=== PATIENT | male | born 1970 | race Caucasian/White ===

== ENCOUNTER 2016-06-15 14:33 | Emergency (ER) | payer SELFPAY ==
[2016-06-15 15:06] VITALS: BP 120/86; PULSE 96; TEMP 98.4
--- NOTE | 2016-06-15 15:14 | DIRPT ---
CLINICAL DATA: Slip and fall today with left-sided chest pain, initial encounter EXAM: LEFT RIBS AND CHEST - 3+ VIEW COMPARISON: 03/06/2016 FINDINGS: Cardiac shadow is within normal limits. The lungs are well aerated bilaterally. No focal infiltrate, effusion or pneumothorax is noted. No acute rib fracture is noted. IMPRESSION: No acute abnormality seen. Electronically Signed By: Clay Bryan M.D. On: 06/15/2016 15:11
--- NOTE | 2016-06-15 15:25 | EDPRACDOC ---
- General Information Chief Complaint: Rib Pain Stated Complaint: FALL - LEFT RIB PAIN Time Seen by Provider: 06/15/16 15:19 Home Medications: Home Medications Omeprazole 20 mg PO DAILY 07/29/12 Insulin Aspart [Novolog Flexpen] 14 unit SQ TID 07/01/14 Insulin Detemir [Levemir] 16 unit SQ HS 12/13/14 Paroxetine HCl [Paxil] 20 mg PO DAILY 03/26/16 Ketorolac Tromethamine [Toradol] 10 mg PO Q6H PRN #20 tab 03/27/16 Penicillin V Potassium 500 mg PO QID #28 tablet 03/27/16 Cyclobenzaprine HCl [Flexeril] 10 mg PO TID PRN #20 tablet 06/15/16 Ibuprofen Tablet [Motrin] 800 mg PO TID PRN #30 tab 06/15/16 Allergies/Adverse Reactions: Allergies Allergy/AdvReac Type Severity Reaction Status Date / Time No Known Drug Allergies Allergy Unknown Verified 03/06/16 02:06 - History of Present Illness Onset: YESTERDAY HPI: PT COMPLAINS OF PAIN IN LEFT LATERAL RIB CAGE SINCE YESTERDAY, NO KNOWN INJURY, DENIES FALL OR OTHER TRAUMA, STATES PAIN IS SHARP, WORSE WITH BREATHING AND MOVING, NO COUGH OR CONGESTION, NO FEVER OR CHILLS, NO SOBR. HAS NOT TAKEN ANY MEDICATIONS FOR HIS PAIN. Chest Wall Injury Location: Reports: Lateral Context: Reports: Other (NO KNOWN INJURY) Tetanus Up To Date?: Yes Pain Quality: Reports: Sharp, Stabbing Pain Severity: Reports: Severe Pain Worsens With: Reports: Coughing, Breathing, Movement Shortness of Breath: None Associated Signs and Symptoms: Denies: Abrasion, Laceration, Hemoptysis, Abdominal Pain ED Past Medical History - History Reviewed Yes Nurses notes reviewed and agree except as marked - Patient Medical History Neurological History: Denies: Cerebrovascular Accident, Dementia Cardiac History: Reports: Congestive Heart Failure. Denies: Atrial Fibrillation , Hypertension, Heart Attack, Hypercholesterolemia Respiratory History: Denies: Asthma, COPD, Emphysema GI/ History: Reports: Gastroesophageal Reflux, Pancreatitis (most recent episode 2014) Musculoskeletal History: Reports: Arthritis (Back pain.) Psychological History: Reports: Anxiety, Bipolar Disorder, Substance Use Disorder (IV cocaine use. Injects cocaine and vinegar together.). Denies: Depression Systemic History: Reports: Diabetes (Type 2, onset 2005 approx. Insulin use.). Denies: Cancer Surgical History: Reports: Other (Drainage of abscesses) - Family Medical History Reports: Diabetes (Mother), Cancer (Great aunt), Stroke (MGM), Cardiac Disorders (MGM: [place]). Denies: Hypertension - Social Medical History Smoking Status: Heavy tobacco smoker (5 or more cigarettes/day or daily pipe/ cigar) Social History: Reports: Cocaine Use, Substance Use Disorder (IV cocaine use. Injects cocaine and vinegar together.) EDM Review of Systems - Review of Systems Constitutional: negative: Chills, Fever Eyes: negative: Blurred Vision, Double Vision Ears: negative: Drainage Throat: negative: Pain Nose: negative: Congestion, Discharge Respiratory: negative: Cough, Shortness of Breath, Wheezing Cardiovascular: negative: Chest Pain, Palpitations Gastrointestinal: negative: Diarrhea, Nausea, Pain, Vomiting Genitourinary: negative: Dysuria, Frequency Neurological: negative: Dizziness, Headache, Numbness, Weakness Musculoskeletal: Ribs Integumentary: No Symptoms Reported - Physical Exam Constitutional: No apparent distress, Other (SLEEPING SOUNDLY RIGHT LATERAL RECUMBENT POSITION, HAD TO CALL PT'S NAME SEVERAL TIMES AND SHAKE HIM TO GET HIM TO WAKE UP) Oriented to: Time, Person, Place Last recorded Vital Signs: Last Vital Signs Temp 98.4 F 06/15/16 15:05 Pulse 96 06/15/16 15:05 Resp 20 06/15/16 15:05 BP 120/86 06/15/16 15:05 Pulse Ox 96 06/15/16 15:05 Oxygen Pulse Oxygen Saturation 96 O2 Device Room Air Oxygen Flow Rate Fraction of Inspired Oxygen ( FIO2) - HEENT Head: Normal ( normocephalic) Eye Exam: Normal (PERRL, EOMI, Sclera white) Oropharynx: Normal (Pharynx:Moist without exudate,Gums-no swelling) Tympanic Membrane: Normal ENT EAC: Normal TMJ: Normal Nose: No Symptoms Reported (septum midline) Neck: Normal (FROM, trachea at midline) - Respiratory/Cardiovascular Respiratory: Normal - CTA (BBS clear to auscultation without adventitious sounds ) Cardiovascular: Normal (RRR without murmur, gallop or rub) - GI Auscultation: Normal (NABS) Palpation: Normal (Soft,No rebound or guarding, non distended) Tenderness: Non tender Sadler's Sign: Negative - Musculoskeletal Back: Normal (Non-Tender) Extremities: Normal (Normal tone, Pulses 2+ No cyanosis or edema, FROM) - Integumentary Skin: Normal, Warm, Dry Lymphatics: Normal (no adenopathy) - Neurologic Memory Impaired: Normal Motor Function: Normal (Normal tone, Pulses 2+ No cyanosis or edema, FROM) Cranial Nerve: Normal (CN II-X11 intact sensation, strength 5/5) Cerebellar: Normal Mood Description: Normal Perception: Normal ED Chest Wall Pain Exam - Chest Wall Pain Chest: Tender (LEFT LATERAL CHEST WALL, MID-AXILLARY LINE). negative: Swelling , Ecchymosis, Deformity, Flail, Crepitance, SQ Emphysema - Differential Diagnosis Chest Wall Contusion, Pneumothorax, Rib Fracture - Diagnostic Imaging LEFT RIBS WITH CXR Image interpreted by: Radiologist LEFT RIBS AND CHEST - 3+ VIEW COMPARISON: 03/06/2016 FINDINGS: Cardiac shadow is within normal limits. The lungs are well aerated bilaterally. No focal infiltrate, effusion or pneumothorax is noted. No acute rib fracture is noted. IMPRESSION: No acute abnormality seen. Decision Time to Discharge: 15:26 - Departure Disposition: Home Condition: Stable Final Diagnosis: Chest wall pain Instructions: Chest Wall Pain Education/Counseling Given To: Patient Education/Counseling Given Regarding: Diagnosis, Treatment, Prognosis, Follow Up Referrals: Gisel Madera MD [Staff Physician] - One Week Prescriptions: Cyclobenzaprine HCl [Flexeril] 10 mg PO TID PRN #20 tablet PRN Reason: Muscle Spasms Ibuprofen Tablet [Motrin] 800 mg PO TID PRN #30 tab PRN Reason: Pain Additional Instructions: APPLY WARM COMPRESSES TO AREAS OF SORENESS 20 MINS AT A TIME 4 - 5 TIMES DAILY NEEDED FOR PAIN.
[2016-06-15 15:28] VITALS: BMI 26.4
== END 2016-06-15 15:36 | disposition home or self-care (01) ==
LOC: EDMC 14:33
DX: R07.89 Other chest pain (principal)
CPT/HCPCS: 99282

== ENCOUNTER 2016-06-21 18:28 | Emergency (ER) | payer SELFPAY ==
[2016-06-21] MEDS ORDERED: TRAMADOL HCL 50 MG TAB PO ONE (19:22)
[2016-06-21] MEDS ORDERED: PREDNISONE 20 MG TAB PO ONE (19:22)
[2016-06-21] MEDS ORDERED: CYCLOBENZAPRINE 10 MG TAB PO ONE (19:23)
[2016-06-21] MEDS ORDERED: KETOROLAC TROMETHAMINE 10 MG TAB PO ONE (19:24)
--- NOTE | 2016-06-21 19:27 | EDPRACDOC ---
- General Chief Complaint: Fall Stated Complaint: RIB PAIN Time Seen by Provider: 06/21/16 19:18 Information Source: Patient Exam Limitations: No Limitations - History of Present Illness Onset: SEVERAL DAYS AGO HPI: PT PRESENTS WITH LEFT RIB PAIN. STATES HE FELL AND STRUCK THE RIBS ON THE ICE. STATES HE CONTINUES TO HAVE PAIN PT ADMITS TO DOING COCAINE, PAIN PILLS AND ETOH TODAY Pain Severity: Reports: Moderate Injuries/Pain Location: Reports: chest Reason for Fall: Reports: slipped Loss of Consciousness: no loss of consciousness Modifying Factors: improves with: immobilization Associated Symptoms (Fall): Reports: shortness of breath Allergies/Adverse Reactions: Allergies No Known Drug Allergies Allergy (Verified 06/21/16 19:26) Unknown Home Medications: Ambulatory Orders Omeprazole 20 mg PO DAILY 07/29/12 Insulin Aspart [Novolog Flexpen] 14 unit SQ TID 07/01/14 Insulin Detemir [Levemir] 16 unit SQ HS 12/13/14 Diazepam [Valium] 5 mg PO TID #15 tablet 06/21/16 Ketorolac Tromethamine [Toradol] 10 mg PO Q6H PRN #20 tab 06/21/16 ED Past Medical History - History Reviewed Yes Nurses notes reviewed and agree except as marked - Patient Medical History Neurological History: Denies: Cerebrovascular Accident, Dementia Cardiac History: Reports: Congestive Heart Failure. Denies: Atrial Fibrillation , Hypertension, Heart Attack, Hypercholesterolemia Respiratory History: Denies: Asthma, COPD, Emphysema GI/ History: Reports: Gastroesophageal Reflux, Pancreatitis (most recent episode 2014) Musculoskeletal History: Reports: Arthritis (Back pain.) Psychological History: Reports: Anxiety, Bipolar Disorder, Substance Use Disorder (IV cocaine use. Injects cocaine and vinegar together.). Denies: Depression Systemic History: Reports: Diabetes (Type 2, onset 2005 approx. Insulin use.). Denies: Cancer Surgical History: Reports: Other (Drainage of abscesses) - Family Medical History Reports: Diabetes (Mother), Cancer (Great aunt), Stroke (MGM), Cardiac Disorders ([facility]GM: [place]). Denies: Hypertension - Social Medical History Smoking Status: Heavy tobacco smoker (5 or more cigarettes/day or daily pipe/ cigar) Social History: Reports: Cocaine Use, Substance Use Disorder (IV cocaine use. Injects cocaine and vinegar together.) EDM Review of Systems - Review of Systems ROS Negative Except as Marked: Yes All systems reviewed and were negative except as marked - Physical Exam Constitutional: Alert Oriented to: Time, Person, Place Last recorded Vital Signs: Oxygen Pulse Oxygen Saturation O2 Device Oxygen Flow Rate Fraction of Inspired Oxygen ( FIO2) - HEENT Head: Normal ( normocephalic) Eye Exam: Normal (PERRL, EOMI, Sclera white) Oropharynx: Normal (Pharynx:Moist without exudate,Gums-no swelling) Nose: No Symptoms Reported (septum midline) Neck: Normal (FROM, trachea at midline) - Respiratory/Cardiovascular Respiratory: Normal - CTA (BBS clear to auscultation without adventitious sounds ) Cardiovascular: Normal (RRR without murmur, gallop or rub) Respiratory/Cardiovascular Comment: PAIN WITH PALPATION OF LEFT RIB - MID CLAVICULAR LINE - GI Auscultation: Normal (NABS) Palpation: Normal (Soft,No rebound or guarding, non distended) Tenderness: Non tender Sadler's Sign: Negative Rectal Exam: Deferred - Musculoskeletal Back: Normal (Non-Tender) Extremities: Normal (Normal tone, Pulses 2+ No cyanosis or edema, FROM) - Integumentary Skin: Normal, Warm, Dry Lymphatics: Normal (no adenopathy) - Neurologic Memory Impaired: Normal Motor Function: Normal (Normal tone, Pulses 2+ No cyanosis or edema, FROM) Cranial Nerve: Normal (CN II-X11 intact sensation, strength 5/5) Cerebellar: Normal Mood Description: Normal Perception: Normal ED Injury/Fall Exam - Physical Exam Head Injury: no evidence of injury Extremity Exam: no evidence of injury Skin: Normal, Warm, Dry - Alexys Coma Score Best Eye Response ([place]): (4) open spontaneously Best Verbal Response ([place]): (5) oriented Best Motor Response ([place]): (6) obeys commands [place] Total: 15 - Differential Diagnosis Contusion, Mechanical Fall Decision Time to Discharge: 19:43 - Departure Disposition: Home Condition: Stable Final Diagnosis: Rib contusion Qualifiers: Encounter type: initial encounter Laterality: left Qualified Code(s): S20.212A - Contusion of left front wall of thorax, initial encounter Instructions: Rib Contusion (ED) Education/Counseling Given To: Patient Education/Counseling Given Regarding: Diagnosis, Treatment, Prognosis, Follow Up Referrals: Cezar Krause MD [Primary Care Provider] - One Week Prescriptions: Diazepam [Valium] 5 mg PO TID #15 tablet Ketorolac Tromethamine [Toradol] 10 mg PO Q6H PRN #20 tab PRN Reason: Pain Additional Instructions: THIS CAN TAKE A LONG TIME TO HEAL. ICE OR HEAT TO THE AFFECTED AREA ~ WHICHEVER FEELS BETTER. FOLLOW UP WITH PCP NEXT WEEK.
[2016-06-21 19:30] VITALS: BP 143/90; PULSE 96; TEMP 97.7; BMI 26.6
--- NOTE | 2016-06-21 19:39 | DIRPT ---
CLINICAL DATA: Fell 1 week ago with increasing left lateral rib pain since then EXAM: BILATERAL RIBS AND CHEST - 4+ VIEW COMPARISON: 06/15/2016 FINDINGS: No fracture or other bone lesions are seen involving the ribs. There is no evidence of pneumothorax or pleural effusion. Both lungs are clear. Heart size and mediastinal contours are within normal limits. IMPRESSION: Negative. Electronically Signed By: Julian Matthews M.D. On: 06/21/2016 19:36
== END 2016-06-21 19:59 | disposition home or self-care (01) ==
LOC: ED 18:28 → EDMC 19:59
DX: S20.212A Contusion of left front wall of thorax, initial encounter (principal); W00.0XXA Fall on same level due to ice and snow, initial encounter; I50.9 Heart failure, unspecified; K21.9 Gastro-esophageal reflux disease without esophagitis; E11.9 Type 2 diabetes mellitus without complications; F14.10 Cocaine abuse, uncomplicated; F17.200 Nicotine dependence, unspecified, uncomplicated; Z79.899 Other long term (current) drug therapy; Z79.4 Long term (current) use of insulin
CPT/HCPCS: 71111; 99283; J3490

== ENCOUNTER 2016-06-21 21:30 | Emergency (ER) | payer SELFPAY ==
[2016-06-21 21:30] VITALS: BMI 26.6
== END 2016-06-21 21:36 | disposition left against medical advice (07) ==
LOC: ED 21:30
DX: Z00.8 Encounter for other general examination (principal); Z53.21 Procedure and treatment not carried out due to patient leaving prior to being seen by health care provider

== ENCOUNTER 2016-07-03 10:13 | Emergency (ER) | payer SELFPAY ==
[2016-07-03 10:13] VITALS: BMI 26.6
[2016-07-03 10:19] VITALS: TEMP 98.3
--- NOTE | 2016-07-03 10:39 | EDPRACDOC ---
- History of Present Illness HPI: PT WELL KNOWN TO ME; LONG HX OF ETOH/DRUG USE; RECENT USAGE. RECORDS ABOVE REVIEWED. CHEST WALL IS TENDER TO PALPATION <Steven Prince - Last Filed: 07/03/16 12:22> - General Information Information Source: Patient Mode of Arrival: Ambulance - History of Present Illness Onset: 2 weeks ago after fall HPI: C/o new left side chest wall pain starting early this am. Pain does not radiate , worse with inhalation and movement. hx of fall on ice 2 weeks ago onto left side with 2 evals by ED and 2 NEG CXR's. Pt states pain from fall was going away but has new onset left side chest pain this morning. Admits to etoh, cocaine and meth use for the past two days.+ smoker 1 pk/day. Med hx = DM, anxiety. Denies fever, N/V/D, trauma, Chest Wall Injury Location: Reports: Lateral, Chest (left) Context: Reports: Other (unknown) Pain Quality: Reports: Sharp Pain Severity: Reports: Moderate Pain Worsens With: Reports: Exertion, Breathing, Movement Shortness of Breath: Mild Associated Signs and Symptoms: Reports: Abdominal Pain (LUQ). Denies: None, Abrasion, Laceration, Hemoptysis, Other <Abel Siu - Last Filed: 07/03/16 19:52> - General Information Stated Complaint: LEFT SIDE FLANK PIAN Home Medications: Home Medications Omeprazole 20 mg PO DAILY 07/29/12 Insulin Aspart [Novolog Flexpen] 14 unit SQ TID 07/01/14 Insulin Detemir [Levemir] 16 unit SQ HS 12/13/14 Allergies/Adverse Reactions: Allergies Allergy/AdvReac Type Severity Reaction Status Date / Time No Known Drug Allergies Allergy Unknown Verified 06/21/16 19:26 ED Past Medical History - History Reviewed Yes Nurses notes reviewed and agree except as marked - Patient Medical History Neurological History: Denies: Cerebrovascular Accident, Dementia Cardiac History: Reports: Congestive Heart Failure. Denies: Atrial Fibrillation , Hypertension, Heart Attack, Hypercholesterolemia Respiratory History: Denies: Asthma, COPD, Emphysema GI/ History: Reports: Gastroesophageal Reflux, Pancreatitis (most recent episode 2014) Musculoskeletal History: Reports: Arthritis (Back pain.) Psychological History: Reports: Depression, Anxiety, Bipolar Disorder, Substance Use Disorder (IV cocaine use. Injects cocaine and vinegar together.) Systemic History: Reports: Diabetes (Type 2, onset 2005 approx. Insulin use.). Denies: Cancer Surgical History: Reports: Other (Drainage of abscesses) - Family Medical History Reports: Diabetes (Mother), Cancer (Great aunt), Stroke (MGM), Cardiac Disorders (MGM: [place]). Denies: Hypertension - Social Medical History Smoking Status: Heavy tobacco smoker (5 or more cigarettes/day or daily pipe/ cigar) Social History: Reports: Cocaine Use, Substance Use Disorder (IV cocaine use. Injects cocaine and vinegar together.) <Abel Siu - Last Filed: 07/03/16 19:52> EDM Review of Systems - Review of Systems ROS Negative Except as Marked: Yes All systems reviewed and were negative except as marked Cardiovascular: Chest Pain Endocrine: Diabetes <Abel Siu - Last Filed: 07/03/16 19:52> - Physical Exam Last recorded Vital Signs: Last Vital Signs Temp 98.3 F 07/03/16 10:15 Pulse 126 H 07/03/16 10:15 Resp 24 07/03/16 10:15 BP 121/88 07/03/16 10:15 Pulse Ox 94 07/03/16 10:15 Oxygen Pulse Oxygen Saturation 94 O2 Device Room Air Oxygen Flow Rate Fraction of Inspired Oxygen ( FIO2) <Steven Prince - Last Filed: 07/03/16 12:22> - Physical Exam Constitutional: Agitated Oriented to: Time, Person, Place Last recorded Vital Signs: Last Vital Signs Temp 98.3 F 07/03/16 10:15 Pulse 126 H 07/03/16 10:15 Resp 24 07/03/16 10:15 BP 121/88 07/03/16 10:15 Pulse Ox 94 07/03/16 10:15 Oxygen Pulse Oxygen Saturation 94 O2 Device Room Air Oxygen Flow Rate Fraction of Inspired Oxygen ( FIO2) - HEENT Head: Normal Eye Exam: negative: Conjunctival Injection, Scleral Icterus Oropharynx: negative: Drooling TMJ: Normal Nose: No Symptoms Reported Neck: Normal - Respiratory/Cardiovascular Respiratory: Normal - CTA Cardiovascular: Tachycardia - GI Auscultation: Normal Palpation: Normal Tenderness: Non tender - Musculoskeletal Back: Normal Extremities: Normal - Integumentary Skin: Normal - Neurologic Mood Description: Anxious, Agitated Thought: Coherent Perception: Normal <Abel Siu - Last Filed: 07/03/16 19:52> ED Chest Wall Pain Exam - Chest Wall Pain Chest: Normal Other Findings: pain is reproducible with palpation. <Abel Siu - Last Filed: 07/03/16 19:52> - Results 07/03/16 11:45 07/03/16 11:45 WBC 15.1 xk/uL (3.8-10.8) H 07/03/16 11:45 RBC 5.14 xM/uL (4.70-6.10) 07/03/16 11:45 Hgb 14.0 g/dL (14.0-18.0) 07/03/16 11:45 Hct 42.0 % (42-52) 07/03/16 11:45 MCV 82 fL (80-94) 07/03/16 11:45 MCH 27.2 pg (27-32) 07/03/16 11:45 MCHC 33.3 g/dl (33-36) 07/03/16 11:45 RDW 16.3 % (11.5-14.5) H 07/03/16 11:45 Plt Count 263 xk/uL (130-400) 07/03/16 11:45 MPV 8.9 fL (7.4-10.4) 07/03/16 11:45 Neut % (Auto) 84.2 % (45-76) H 07/03/16 11:45 Lymph % (Auto) 8.6 % (17-44) L 07/03/16 11:45 [place] % (Auto) 5.6 % (3-10) 07/03/16 11:45 Eos % (Auto) 1.0 % (0-5) 07/03/16 11:45 Baso % (Auto) 0.6 % (0-2) 07/03/16 11:45 Absolute Neuts (auto) 12.68 xk/uL (1.7-8.2) H 07/03/16 11:45 Absolute Lymphs (auto) 1.21 xk/uL (0.65-4.75) 07/03/16 11:45 Lab Results 07/03/16 11:45 WBC 15.1 H RBC 5.14 Hgb 14.0 Hct 42.0 MCV 82 MCH 27.2 MCHC 33.3 RDW 16.3 H Plt Count 263 MPV 8.9 Neut % (Auto) 84.2 H Lymph % (Auto) 8.6 L [place] % (Auto) 5.6 Eos % (Auto) 1.0 Baso % (Auto) 0.6 Absolute Neuts (auto) 12.68 H Absolute Lymphs (auto) 1.21 <Steven Prince - Last Filed: 07/03/16 12:22> - Results 07/03/16 11:45 07/03/16 11:45 - EKG EKG #1 EKG Time: 10:42 -: Yes EKG interpreted by me Rate: bpm: 125 [place]: Normal Rhythm: ST Block: None Hypertrophy: None ST: Normal Comparison: 03/06/16 (NSR) - Diagnostic Imaging Chest Image interpreted by: Radiologist EXAM: PORTABLE CHEST 1 VIEW COMPARISON: 06/22/2016 FINDINGS: Mild vascular prominence/ congestion. Pre seen airspace opacity at the right lung base medially. No confluent opacity on the left. Heart is normal size. No effusions or acute bony abnormality. No pneumothorax. IMPRESSION: Mild vascular congestion. New right infrahilar airspace opacity. Cannot exclude pneumonia. Electronically Signed By: Jorge Luis Purvis M.D. On: 07/03/2016 10:49 <Abel Siu - Last Filed: 07/03/16 19:52> <Steven Prince - Last Filed: 07/03/16 12:22> Decision Time to Discharge: 12:42 - Departure Disposition: Home Education/Counseling Given To: Patient Education/Counseling Given Regarding: Diagnosis, Treatment, Prognosis, Follow Up <Abel Siu - Last Filed: 07/03/16 19:52> - Departure Condition: Stable Final Diagnosis: Left-sided chest wall pain Instructions: Chest Pain (ED), Chest Wall Pain Referrals: None,No Provider [Primary Care Provider] - One Week Prescriptions: No Action Omeprazole 20 mg PO DAILY Insulin Aspart [Novolog Flexpen] 14 unit SQ TID Insulin Detemir [Levemir] 16 unit SQ HS Additional Instructions: Follow up with primary care. Take ibuprofen nor tylenol for pain. Return to ED for any new or worsening symptoms.
[2016-07-03] MEDS ORDERED: LORAZEPAM 2 MG/ML VIAL IV ONE (10:51)
--- NOTE | 2016-07-03 10:51 | DIRPT ---
CLINICAL DATA: The left chest wall pain. Fell on ice 2 weeks ago. EXAM: PORTABLE CHEST 1 VIEW COMPARISON: 06/22/2016 FINDINGS: Mild vascular prominence/ congestion. Pre seen airspace opacity at the right lung base medially. No confluent opacity on the left. Heart is normal size. No effusions or acute bony abnormality. No pneumothorax. IMPRESSION: Mild vascular congestion. New right infrahilar airspace opacity. Cannot exclude pneumonia. Electronically Signed By: Jorge Luis Purvis M.D. On: 07/03/2016 10:49
[2016-07-03] MEDS ORDERED: KETOROLAC TROMETH 30 MG/ML VIAL IV ONE (10:58)
[2016-07-03] MEDS ORDERED: LORAZEPAM 1 MG TAB PO ONE (11:21)
[2016-07-03 12:01] LABS: AUTOMATED BASOPHIL 0.6 % (0-2); AUTOMATED LYMPH 8.6 % (17-44); AUTOMATED MONOCYTE 5.6 % (3-10); AUTOMATED NEUTROPHIL 84.2 % (45-76); MPV 8.9 fL (7.4-10.4)
[2016-07-03 12:05] LABS: BLOOD UREA NITROGEN 11 MG/DL (9-20); CALCIUM 9.1 MG/DL (8.4-10.2); CALCULATED OSMOLALITY 265 MOs/Kg (270-290); CHLORIDE 99 mEq/L (98-107); GLUCOSE 179 MG/DL (70-99); SODIUM LEVEL 136 mEq/L (137-146); TOTAL PROTEIN 7.8 G/DL (6.3-8.2)
[2016-07-03 13:05] VITALS: BP 127/71; PULSE 123
== END 2016-07-03 13:00 | disposition home or self-care (01) ==
LOC: ED 10:13
DX: R07.89 Other chest pain (principal)
CPT/HCPCS: 36415; 71010; 80053; 83690; 84484; 85025; 93005; 99283; J3490; J1885; J2060